=== PATIENT | male | born 1970 | race Caucasian/White ===

== ENCOUNTER 2022-01-10 14:18 | Inpatient (IN) | payer OTHER ==
[~2022-01-10] VITALS: Ht 190.5 cm; Wt 140.8 kg
[2022-01-10] VITALS (9 sets, daily range): BP systolic 120–151; BP diastolic 82–102
[~2022-01-10 14:18] MED LIST: AMLODIPINE BESYL5 MG PO; ATORVASTATIN CA10 MG PO; NO MEDS; NORVASC10 MG PO
[2022-01-10] MEDS ORDERED: ADENOSINE 6 MG/2 ML ONE (14:36)
[2022-01-10] MEDS ORDERED: SODIUM CHLORIDE 0.9% 1000ML 1,000 ML ONE (14:36)
[2022-01-10 14:42] LABS: BASOPHILS # (AUTO) 0.1 (0.0-0.1); BASOPHILS % 0.9 % (0.0-1.0); EOSINOPHILS # (AUTO) 0.1 (0.0-0.4); EOSINOPHILS % 1.7 % (0.0-6.0); HEMATOCRIT 43.8 % (38.2-49.6); HEMOGLOBIN 14.4 g/dL (14.0-18.0); LYMPHOCYTES # (AUTO) 3.8 (1.0-3.2); LYMPHOCYTES % 60.4 % (18.0-39.1); MEAN CORPUSCULAR HEMOGLOBIN 29.7 pg (28-32); MEAN CORPUSCULAR HGB CONC 32.9 g/dL (31-35); MEAN CORPUSCULAR VOLUME 90.3 fL (81-99); MONOCYTES # (AUTO) 0.6 (0.2-0.8); NEUTROPHILS # (AUTO) 1.7 (2.1-6.9); NEUTROPHILS % 27.5 % (38.7-80.0); PLATELET COUNT 171 x10e3/uL (140-360); RED BLOOD COUNT 4.85 x10e6/uL (4.3-5.7); RED CELL DISTRIBUTION WIDTH 16.6 % (11.7-14.4)
[2022-01-10] MEDS ORDERED: DILTIAZEM HCL IV 5MG/ML 25 ML VIAL ONE ×2 (14:44→14:52)
[2022-01-10] MEDS ORDERED: ASPIRIN 81 MG CHEW TAB PO ONE (14:45)
[2022-01-10] MEDS ORDERED: SODIUM CHLORIDE 0.9% 100 ML ONE (14:52)
[2022-01-10 14:57] LABS: ALBUMIN 4.1 g/dL (3.5-5.0); ALBUMIN/GLOBULIN RATIO 1.2 (0.8-2.0); ANION GAP 24.1 mmol/L (8-16); CALCIUM 8.3 mg/dL (8.4-10.2); CREATININE, SERUM 1.14 mg/dL (0.72-1.25); POTASSIUM 4.1 mmol/L (3.5-5.1)
[2022-01-10] MEDS ORDERED: DILTIAZEM HCL 5 MG/ML 5 ML VIAL IV STA ×3 (15:01→15:48)
[2022-01-10 15:03] LABS: CREATINE KINASE MB 12.1 ng/mL (0-5.0)
[2022-01-10] MEDS ORDERED: ADENOSINE 6 MG/2 ML VIAL IV ONE ×5 (15:15→16:00)
[2022-01-10 15:16] LABS: INR 0.87; PARTIAL THROMBOPLASTIN TIME 28.2 seconds (23.8-35.5); PROTHROMBIN TIME 12.7 seconds (11.9-14.5)
[2022-01-10 15:20] LABS: LYMPHOCYTES % (MANUAL) 70 % (19-48); MONOCYTES % (MANUAL) 8 % (3.4-9.0); NEUTROPHILS % (MANUAL) 22 % (40-74); PLATELET ESTIMATE ADEQUATE; PLATELET MORPHOLOGY COMMENT NORMAL; RBC MORPHOLOGY COMMENT NORMAL
[2022-01-10 15:35] LABS: AMPHETAMINES SCREEN,URINE NEGATIVE (NEGATIVE); BENZODIAZEPINES SCREEN,URINE NEGATIVE (NEGATIVE); CLARITY,URINE HAZY (CLEAR); COLOR,URINE YELLOW (YELLOW); KETONES,URINE NEGATIVE (NEGATIVE); LEUKOCYTE ESTERASE ,URINE NEGATIVE (NEGATIVE); NITRITE,URINE NEGATIVE (NEGATIVE); PHENCYCLIDINE SCREEN,URINE NEGATIVE (NEGATIVE); PROTEIN,URINE DIPSTICK 2+ (NEGATIVE); URINE UROBILINOGEN 0.2 mg/dL (0.2 - 1)
[2022-01-10 15:36] LABS: BACTERIA,URINE FEW /HPF; EPITHELIAL CELLS,URINE FEW /LPF; RBC,URINE 0-5 /HPF (0-5); WBC,URINE (MAN) 0-5 /HPF (0-5)
[2022-01-10] MEDS: DILTIAZEM HCL 125 ML IV SCH (15:53)
[2022-01-10] MEDS ORDERED: METOPROLOL TARTRATE 50 MG TAB PO ONE (16:15)
[2022-01-10] MEDS ORDERED: ONDANSETRON HCL INJ 2MG/ML 2ML 2 MG/ML VIAL IV PRN (16:15)
[2022-01-10] MEDS ORDERED: MULTIVITAMINS- 12 INJECTION 10 ML, FOLIC ACID MDV 1 MG, THIAMINE HCL INJ 100 MG in SODI... IV ONE (16:15)
[2022-01-10] MEDS: FAMOTIDINE 20 MG/2 ML VIAL IV SCH (16:46)
[2022-01-10] MEDS ORDERED: LABETALOL HCL 5 MG/ML 20ML VIAL IV PRN (17:15)
[2022-01-10] MEDS: DEXTROSE IV SCH (17:36)
[2022-01-10] MEDS: SOD CHL IV SCH (17:36)
[2022-01-10] MEDS: MULTIVITAMINS IV SCH (17:36)
[2022-01-10 18:43] LABS: CREATINE KINASE MB 12.4 ng/mL (0-5.0)
[2022-01-10] MEDS: LORAZEPAM 0.5 MG TAB PO PRN ×2 (19:45→23:46)
[2022-01-11] VITALS (20 sets, daily range): BP systolic 130–157; BP diastolic 78–110
[2022-01-11] MEDS ORDERED: DEXTROSE IV ONE (01:19)
[2022-01-11] MEDS ORDERED: SOD CHL IV ONE (01:19)
[2022-01-11] MEDS: SOD CHL IV SCH (02:33)
[2022-01-11] MEDS: MULTIVITAMINS IV SCH (02:33)
[2022-01-11] MEDS: DEXTROSE IV SCH (02:33)
[2022-01-11] MEDS: FAMOTIDINE 20 MG/2 ML VIAL IV SCH ×2 (04:07→16:02)
[2022-01-11] MEDS: LORAZEPAM 0.5 MG TAB PO PRN (04:07)
[2022-01-11 07:19] LABS: BASOPHILS % 0.9 % (0.0-1.0); EOSINOPHILS # (AUTO) 0.1 (0.0-0.4); EOSINOPHILS % 1.4 % (0.0-6.0); HEMATOCRIT 35.6 % (38.2-49.6); HEMOGLOBIN 12.2 g/dL (14.0-18.0); LYMPHOCYTES # (AUTO) 0.7 (1.0-3.2); LYMPHOCYTES % 15.5 % (18.0-39.1); MEAN CORPUSCULAR HEMOGLOBIN 29.5 pg (28-32); MEAN CORPUSCULAR HGB CONC 34.3 g/dL (31-35); MONOCYTES # (AUTO) 0.6 (0.2-0.8); NEUTROPHILS % 67.3 % (38.7-80.0); PLATELET COUNT 155 x10e3/uL (140-360); RED BLOOD COUNT 4.14 x10e6/uL (4.3-5.7); RED CELL DISTRIBUTION WIDTH 16.4 % (11.7-14.4)
[2022-01-11 07:43] LABS: ALBUMIN 3.7 g/dL (3.5-5.0); ALBUMIN/GLOBULIN RATIO 1.1 (0.8-2.0); ANION GAP 16.7 mmol/L (8-16); CALCIUM 8.6 mg/dL (8.4-10.2); CHOL/HDL RATIO 2.9 (3.9-4.7); CREATININE, SERUM 0.87 mg/dL (0.72-1.25); MAGNESIUM 1.7 MG/DL (1.3-2.1); POTASSIUM 3.7 mmol/L (3.5-5.1)
[2022-01-11 07:52] LABS: CREATINE KINASE MB 3.8 ng/mL (0-5.0)
[2022-01-11] MEDS ORDERED: DEXTROSE 50% SYRINGE 50 ML IV PRN (08:45)
[2022-01-11] MEDS: FOLIC ACID 1 MG TAB PO SCH (08:47)
[2022-01-11] MEDS: GABAPENTIN 100 MG CAP PO SCH ×2 (08:47→16:01)
[2022-01-11] MEDS: ASPIRIN 81 MG ENTERIC COATED PO SCH (08:48)
[2022-01-11] MEDS: INSULIN LISPRO 100 UNIT/1 ML 3ML VIAL SQ SCH ×3 (11:16→20:27)
[2022-01-11] MEDS: DILTIAZEM HCL 125 ML IV SCH (15:15)
[2022-01-11] MEDS: THIAMINE HCL 100 MG TAB PO SCH (16:01)
[2022-01-11] MEDS: ZOLPIDEM TARTRATE 5 MG TAB PO PRN (22:30)
[2022-01-12] VITALS (10 sets, daily range): BP systolic 121–157; BP diastolic 81–106
[2022-01-12] MEDS: FAMOTIDINE 20 MG/2 ML VIAL IV SCH (04:27)
[2022-01-12 06:53] LABS: BASOPHILS # (AUTO) 0.1 (0.0-0.1); BASOPHILS % 1.4 % (0.0-1.0); EOSINOPHILS # (AUTO) 0.1 (0.0-0.4); EOSINOPHILS % 3.9 % (0.0-6.0); HEMATOCRIT 39.2 % (38.2-49.6); LYMPHOCYTES # (AUTO) 1.2 (1.0-3.2); LYMPHOCYTES % 34.3 % (18.0-39.1); MEAN CORPUSCULAR HEMOGLOBIN 29.7 pg (28-32); MEAN CORPUSCULAR HGB CONC 33.2 g/dL (31-35); MEAN CORPUSCULAR VOLUME 89.7 fL (81-99); MONOCYTES # (AUTO) 0.6 (0.2-0.8); MONOCYTES % 17.5 % (4.4-11.3); NEUTROPHILS # (AUTO) 1.5 (2.1-6.9); NEUTROPHILS % 42.1 % (38.7-80.0); PLATELET COUNT 118 x10e3/uL (140-360); RED BLOOD COUNT 4.37 x10e6/uL (4.3-5.7)
[2022-01-12 07:10] LABS: ALBUMIN 3.5 g/dL (3.5-5.0); ALBUMIN/GLOBULIN RATIO 1.1 (0.8-2.0); ANION GAP 14.8 mmol/L (8-16); CALCIUM 8.7 mg/dL (8.4-10.2); CREATININE, SERUM 0.82 mg/dL (0.72-1.25); POTASSIUM 3.8 mmol/L (3.5-5.1)
[2022-01-12] MEDS: INSULIN LISPRO 100 UNIT/1 ML 3ML VIAL SQ SCH (07:24)
[2022-01-12] MEDS: FOLIC ACID 1 MG TAB PO SCH (08:06)
[2022-01-12] MEDS: THIAMINE HCL 100 MG TAB PO SCH (08:06)
[2022-01-12] MEDS: GABAPENTIN 100 MG CAP PO SCH ×2 (08:06→17:14)
[2022-01-12] MEDS: ASPIRIN 81 MG ENTERIC COATED PO SCH (08:06)
[2022-01-12] MEDS: METOPROLOL SUCCINATE 50 MG TAB XL PO SCH ×2 (09:00→09:04)
[2022-01-12] MEDS: SODIUM CHLORIDE 0.9% 1000ML 1,000 ML IV SCH ×2 (11:00→21:00)
[2022-01-12] MEDS ORDERED: ONDANSETRON HCL 4 MG ORAL DISINTEGRATING TAB PO PRN (13:45)
[2022-01-12] MEDS: FAMOTIDINE 20 MG TAB PO SCH (17:15)
[2022-01-12] MEDS: ZOLPIDEM TARTRATE 5 MG TAB PO PRN ×2 (22:01→23:15)
[2022-01-13] VITALS: BP 140/98
[2022-01-13 04:00] VITALS: BP 136/100
[2022-01-13] MEDS: SODIUM CHLORIDE 0.9% 1000ML 1,000 ML IV SCH (04:57)
[2022-01-13 04:59] LABS: BASOPHILS # (AUTO) 0.1 (0.0-0.1); BASOPHILS % 1.6 % (0.0-1.0); EOSINOPHILS # (AUTO) 0.1 (0.0-0.4); HEMATOCRIT 40.4 % (38.2-49.6); HEMOGLOBIN 13.3 g/dL (14.0-18.0); LYMPHOCYTES # (AUTO) 1.4 (1.0-3.2); LYMPHOCYTES % 33.2 % (18.0-39.1); MEAN CORPUSCULAR HEMOGLOBIN 29.7 pg (28-32); MEAN CORPUSCULAR HGB CONC 32.9 g/dL (31-35); MEAN CORPUSCULAR VOLUME 90.2 fL (81-99); MONOCYTES # (AUTO) 0.6 (0.2-0.8); NEUTROPHILS # (AUTO) 2.1 (2.1-6.9); NEUTROPHILS % 48.3 % (38.7-80.0); PLATELET COUNT 141 x10e3/uL (140-360); RED BLOOD COUNT 4.48 x10e6/uL (4.3-5.7); RED CELL DISTRIBUTION WIDTH 15.9 % (11.7-14.4)
[2022-01-13 05:15] LABS: ALBUMIN 3.8 g/dL (3.5-5.0); ANION GAP 14.8 mmol/L (8-16); CALCIUM 8.8 mg/dL (8.4-10.2); CREATININE, SERUM 0.9 mg/dL (0.72-1.25); POTASSIUM 3.8 mmol/L (3.5-5.1)
[2022-01-13 08:00] VITALS: BP 151/97
[2022-01-13] MEDS: FAMOTIDINE 20 MG TAB PO SCH (08:01)
[2022-01-13] MEDS: GABAPENTIN 100 MG CAP PO SCH (09:17)
[2022-01-13] MEDS: FOLIC ACID 1 MG TAB PO SCH (09:17)
[2022-01-13] MEDS: THIAMINE HCL 100 MG TAB PO SCH (09:17)
[2022-01-13] MEDS: METOPROLOL SUCCINATE 50 MG TAB XL PO SCH (09:18)
[2022-01-13] MEDS: ASPIRIN 81 MG ENTERIC COATED PO SCH (09:18)
[2022-01-13] MEDS ORDERED: TOPROL XL50 MG PO (09:25)
[2022-01-13] MEDS ORDERED: ASPIRIN EC81 MG PO (09:25)
[2022-01-13] MEDS ORDERED: GABAPENTIN100 MG PO (09:25)
[2022-01-13] MEDS ORDERED: ONDANSETRON ODT4 MG PO (09:25)
[2022-01-14] MEDS ORDERED: METOPROLOL SUCCINATE 50 MG TAB XL PO SCH (09:00)
== END 2022-01-13 11:00 | disposition home or self-care (01) | DRG 918 ==
LOC: ER 14:20 → ICU 16:13 → MED/SURG 01-12 08:55
PROVIDERS: ADMIT Internal Medicine; ATTEND Internal Medicine
DX: T51.0X1A Toxic effect of ethanol, accidental (unintentional), initial encounter (principal); I47.1 Supraventricular tachycardia; N17.9 Acute kidney failure, unspecified; F10.120 Alcohol abuse with intoxication, uncomplicated; Y90.8 Blood alcohol level of 240 mg/100 ml or more; R07.9 Chest pain, unspecified; R74.01 Elevation of levels of liver transaminase levels; E78.5 Hyperlipidemia, unspecified; G57.93 Unspecified mononeuropathy of bilateral lower limbs; I73.9 Peripheral vascular disease, unspecified; R73.9 Hyperglycemia, unspecified; E87.6 Hypokalemia; E66.9 Obesity, unspecified; Z68.38 Body mass index [BMI] 38.0-38.9, adult; Z86.16 Personal history of COVID-19; Z82.49 Family history of ischemic heart disease and other diseases of the circulatory system; Z90.49 Acquired absence of other specified parts of digestive tract; Z20.822 Contact with and (suspected) exposure to COVID-19
CPT/HCPCS: 36415; 71045; 80053; 80061; 80307; 80320; 81001; 82150; 82550; 82553; 82947; 82948; 83036; 83735; 83880; 84443; 84484; 85025; 85379; 85610; 85730; 93005; 93306; 94799; 96361; 99251; 99285; J0153; J3411; J7030; J7050

== ENCOUNTER 2024-11-23 20:12 | Inpatient (IN) | payer BC, OTHER ==
[~2024-11-23] VITALS: Ht 188 cm; Wt 140.6 kg
[~2024-11-23 20:12] MED LIST changes: +ASPIRIN EC81 MG PO; +GABAPENTIN100 MG PO; +ONDANSETRON ODT4 MG PO; +TOPROL XL50 MG PO
[2024-11-23] MEDS ORDERED: ADENOSINE 6MG/2ML 3 ML ONE (20:17)
[2024-11-23] MEDS ORDERED: AMIODARONE 900MG 900 MG in Premix Bag 1 BAG IV SCH (20:30)
[2024-11-23 20:31] LABS: BASOPHILS % 1.3 % (0.0-1.0); EOSINOPHILS % 2.6 % (0.0-6.0); LYMPHOCYTES % 42.0 % (18.0-39.1); MONOCYTES % 8.8 % (4.4-11.3); NEUTROPHILS % 44.6 % (38.7-80.0); RED CELL DISTRIBUTION WIDTH 16.3 % (11.7-14.4)
[2024-11-23] MEDS: METOPROLOL TARTRATE 50 MG TAB PO ONE (20:41)
[2024-11-23] MEDS: AMIODARONE HCL 150 MG/100 ML BAG IV ONE (20:41)
[2024-11-23] MEDS: ADENOSINE 6 MG/2 ML VIAL IV ONE ×3 (20:42→20:43)
[2024-11-23] MEDS: SODIUM CHLORIDE 0.9% 1000ML 1,000 ML IV ONE (20:43)
[2024-11-23 20:47] LABS: ETHANOL 289.2 mg/dL (0.0-10.0)
[2024-11-23 20:51] LABS: EST GLOMERULAR FILTRATION RATE 70.0 ML/MIN (>=60)
[2024-11-23] MEDS ORDERED: AMIODARONE 900MG 500 ML IV ONE (20:51)
[2024-11-23] MEDS: AMIODARONE 900MG 500 ML IV SCH (20:55)
[2024-11-23 21:20] VITALS: TEMP 98.1
[2024-11-23 22:34] VITALS: PULSE 155; RESP 13
[2024-11-23] MEDS: METOPROLOL TARTRATE 25 MG TAB PO SCH (22:45)
[2024-11-23] MEDS: ASPIRIN 81 MG CHEW TAB PO ONE (23:23)
[2024-11-24] VITALS (30 sets, daily range): BP systolic 80–193; BP diastolic 64–158; PULSE 67–150; RESP 14–33; TEMP 97.9–99.5; O2SAT 90–100
[2024-11-24] MEDS: MULTIVITAMINS- 12 INJECTION 10 ML, FOLIC ACID MDV 1 MG, THIAMINE HCL INJ 100 MG in SODI... IV ONE (00:12)
[2024-11-24] MEDS: ONDANSETRON HCL INJ 2MG/ML 2ML 2 MG/ML VIAL IV PRN (02:20)
[2024-11-24] MEDS ORDERED: AMLODIPINE BESYLATE 5 MG TAB PO PRN (07:15)
[2024-11-24] MEDS: SALINE 0.65% NAS SOLN 1 SPRAY BTL SCH (07:20)
[2024-11-24] MEDS ORDERED: HYDRALAZINE HCL 20 MG/ML VIAL IV PRN (07:30)
[2024-11-24] MEDS: OXYMETAZOLINE HCL 0.05% NAS 1 SPRAY BTL SCH (07:30)
[2024-11-24] MEDS: AMLODIPINE BESYLATE 10 MG TAB PO SCH (07:32)
[2024-11-24] MEDS: FLUTICASONE PROPIONATE NASAL SPRAY NS SCH (08:00)
[2024-11-24] MEDS ORDERED: METOPROLOL SUCCINATE 50 MG TAB XL PO SCH (09:00)
[2024-11-24] MEDS: CHLORDIAZEPOXIDE HCL 25 MG CAP PO PRN (09:43)
[2024-11-24] MEDS: LORAZEPAM INJ 2 MG/ML VIAL IV PRN (09:43)
[2024-11-24 09:47] LABS: BASOPHILS % 0.6 % (0.0-1.0); EOSINOPHILS % 0.3 % (0.0-6.0); LYMPHOCYTES % 5.4 % (18.0-39.1); MONOCYTES % 4.6 % (4.4-11.3); NEUTROPHILS % 88.4 % (38.7-80.0); RED CELL DISTRIBUTION WIDTH 15.9 % (11.7-14.4)
[2024-11-24 10:00] LABS: CHOL/HDL RATIO 3.2 (3.9-4.7); EST GLOMERULAR FILTRATION RATE 88.0 ML/MIN (>=60); LDL CHOLESTEROL 154.0 MG/DL (60-130)
[2024-11-24] MEDS: LEVOFLOXACIN 500 MG TAB PO SCH (11:56)
[2024-11-24] MEDS: ATORVASTATIN 10 MG TAB PO SCH (20:12)
[2024-11-25 03:20] VITALS: BP 134/92; PULSE 72; RESP 18; TEMP 99; O2SAT 97
[2024-11-25 08:30] LABS: BASOPHILS % 0.8 % (0.0-1.0); EOSINOPHILS % 1.7 % (0.0-6.0); LYMPHOCYTES % 19.3 % (18.0-39.1); MONOCYTES % 6.2 % (4.4-11.3); NEUTROPHILS % 71.0 % (38.7-80.0); RED CELL DISTRIBUTION WIDTH 15.5 % (11.7-14.4)
[2024-11-25] MEDS ORDERED: LEVOFLOXACIN250 MG PO (09:33)
[2024-11-25] MEDS ORDERED: FLONASE ALLERG9.9 ML INH (09:34)
[2024-11-25 09:40] LABS: EST GLOMERULAR FILTRATION RATE 107.0 ML/MIN (>=60)
[2024-11-25 10:08] VITALS: BP 145/90; PULSE 107; RESP 20; TEMP 98.7; O2SAT 97
[2024-11-25 11:00] VITALS: BP 143/94; PULSE 79; RESP 20; TEMP 99; O2SAT 100
== END 2024-11-25 11:45 | disposition home or self-care (01) | DRG 310 ==
LOC: ER 20:15 → ERHOLD 22:42 → ICU 23:43 → MED/SURG2 11-24 15:58
PROVIDERS: ADMIT Internal Medicine Critical Care Medicine; ATTEND Internal Medicine Critical Care Medicine
DX: I47.10 Supraventricular tachycardia, unspecified (principal); R07.9 Chest pain, unspecified; R60.9 Edema, unspecified; F10.129 Alcohol abuse with intoxication, unspecified; I10 Essential (primary) hypertension; E78.00 Pure hypercholesterolemia, unspecified; J01.90 Acute sinusitis, unspecified; R42 Dizziness and giddiness; K70.10 Alcoholic hepatitis without ascites; G62.89 Other specified polyneuropathies; Z86.16 Personal history of COVID-19; Z79.82 Long term (current) use of aspirin
CPT/HCPCS: 36415; 70450; 71045; 80048; 80053; 80061; 80320; 82550; 82948; 83735; 84443; 84484; 85025; 93005; 94799; 99284; J0153; J2060; J2405; J3411; J7030